=== PATIENT | female | born 1955 | race Caucasian/White ===

== ENCOUNTER 2017-03-26 19:06 | Emergency (ER) | payer OTHER ==
[2017-03-26 19:14] VITALS: RESP 16
--- NOTE | 2017-03-26 19:25 | EDPHY ---
H & P Stated Complaint: right wrist pain and swelling while hiking Time Seen by Provider: 03/26/17 19:25 - Personal History Current Tetanus/Diphtheria Vaccine: Yes Current Tetanus Diphtheria and Acellular Pertussis (TDAP): Yes Tetanus Vaccine Date: 2016 - Medical/Surgical History Hx Asthma: No Hx Chronic Respiratory Disease: No Hx Diabetes: No Hx Cardiac Disease: No Hx Renal Disease: No Hx Cirrhosis: No Hx Alcoholism: No Hx HIV/AIDS: No Hx Splenectomy or Spleen Trauma: No Other PMH: right total hip replacement. - Social History Smoking Status: Never smoked Constitutional: Initial Vital Signs Heart Rate 76 03/26/17 19:10 Respiratory Rate 16 03/26/17 19:10 Blood Pressure 130/69 H 03/26/17 19:10 O2 Sat (%) 93 03/26/17 19:10 O2 Delivery Mode Room Air O2 (L/minute) 15 Allergies/Adverse Reactions: Sulfa (Sulfonamide Antibiotics) Allergy (Verified 03/26/17 19:14) Home Medications: Medication Instructions Recorded NK [No Known Home Meds] 03/26/17 Medical Decision Making - Diagnostics Imaging Results: Imaging Impressions Wrist X-Ray 03/26/17 19:16 Impression: Acute distal radial and ulnar fractures. ED Course/Re-evaluation: CHIEF COMPLAINT: Right wrist pain. HISTORY OF PRESENT ILLNESS: The patient is a 61-year-old female who presents with right wrist pain secondary to falling while hiking earlier today. She denies numbness, weakness, or other complaints. She is able to move all of the fingers of her hand. Her other extremities are atraumatic. She did not hit her head. REVIEW OF SYSTEMS: A 10 point review of systems was performed and is negative with the exception of the elements mentioned in the history of present illness. PHYSICAL EXAM: HR, BP, O2 Sat, RR. Temp noted General Appearance: Alert, well hydrated, appropriate, and non-toxic appearing. Head: Atraumatic without scalp tenderness or obvious injury Eyes: Pupils equal, round, reactive to light and accommodation, EOMI, no trauma , no injection. Ears: Clear bilaterally, no perforation, normal landmarks Nose: Atraumatic, no rhinorrhea, clear. Throat: There is no erythema or exudates, no lesions, normal tonsils, mucus membranes moist. Neck: Supple, 2+ carotid upstroke, nontender, no lymphadenopathy. Respiratory: No retractions, no distress, no wheezes, and no accessory muscle use. Lungs are clear to auscultation bilaterally. Cardiovascular: Regular rate and rhythm, no murmurs, rubs, or gallops. Bilateral carotid, radial, dorsalis pedis, and posterior tibial pulses intact. Good capillary refill all extremities. Gastrointestinal: Abdomen is soft, nontender, non-distended, no masses, no rebound, no guarding, no peritoneal signs. Musculoskeletal: Deformity to right wrist with tenderness. Pain with range of motion. Neurological: Alert, appropriate, and interactive. The patient has normal DTRs and non-focal cranial nerves, motor, sensory, and cerebellar exam. Skin: No rashes, good turgor, no nodules on palpation. Past medical history: Denies. Past surgical history: Right total hip replacement, Family history: Non-contributory. Social history: Here with family. DIAGNOSTICS/PROCEDURES/CRITICAL CARE TIME: Study: Right Wrist X-ray Indication: Trauma, pain Results: I viewed the images myself on the PACS system. My interpretation of the images is: slightly angulated radius fracture. Ulnar styloid fracture. The radiologist interpretation is pending at the time of this dictation. Procedure: Conscious sedation. Indication: Right wrist fracture. The patient is an appropriate candidate to tolerate procedural sedation. The patient's vitals signs and mental status are appropriate. The risks, benefits and alternatives of the sedation were discussed with the patient. The did meet the 3-3-2 airway measurements. A time out was completed. The patient was sedated with 20mg IV Ketamine and IV Propofol. The patient was monitored with continuous pulse oximetry, secured entrance monitor and end tidal CO2. There were no complications and no significant hypoxemia. I performed both the sedation and the procedure. The total time I spent at the bedside during the procedural sedation was 10 minutes. The patient was examined after the procedural sedation and has returned to their pre-sedation baseline with normal vital signs and a normal examination. Procedure: Reduction of Angulated right radius fracture Time-out completed immediately before the procedure. IV established. O2 administered. Placed on pulse oximeter and ETCO2 monitor. Neurovascular exam intact pre-procedure. Given 20mg IV Ketamine for pain and sedation and IV Propofol for sedation. The right radius was reduced using traction. Reassessed post-procedure. Neurovascular status intact-Normal Motor and sensory exam. Confirmed reduction on X-ray. Splint applied by tech. The procedure was performed by myself. Study: Post Reduction right wrist X-ray Indication: Post-reduction Results: I viewed the images myself on the PACS system. My interpretation of the images is: better alignment of previously seen fracture. The radiologist interpretation is pending at the time of this dictation. DIFFERENTIAL DIAGNOSIS: The differential diagnosis includes, but is not limited to: sprain, strain, fracture. MEDICAL DECISION MAKIN-year-old female presents with right wrist pain and deformity after a hiking fall. She has pain with range of motion. On x-ray she has an angulated right radius fracture and ulnar styloid fracture. I discussed the risks and benefits of wrist reduction with sedation. She is agreeable to the procedure (see procedure note for details). I reviewed the post-reduction x-rays on the PACS system. They show a good reduction with better alignment. I discussed these results with her. She will be sent home with a sling and understands to follow up with orthopedics. I offered pain medications but she declined. Departure - Departure Disposition: Home, Routine, Self-Care Clinical Impression: Right wrist fracture Qualifiers: Encounter type: initial encounter Fracture type: closed Qualified Code(s): S62.101A - Fracture of unspecified carpal bone, right wrist, initial encounter for closed fracture Condition: Good Instructions: Wrist Fracture in Adults (ED) Additional Instructions: Follow up with an orthopedic surgeon when you return to [place]. If you need an orthopedic surgeon in [place] you have been given the telephone number of Dr. Villalobos, orthopedics. Wear the splint until you have followed up with orthopedics. Be sure to do daily shoulder rotation exercises. Return for any serious worsening of condition. Referrals: MERRICK SANTOYO [Other] - As per Instructions Report Scribed for: Milton Fox Report Scribed by: Ramu Amador Date of Report: 03/26/17 Time of Report: 20:11
[2017-03-26] MEDS ORDERED: KETAMINE 100 MG/10 ML SYR ONE (19:55)
[2017-03-26] MEDS ORDERED: PROPOFOL 200 MG/20 ML VIAL ONE (19:55)
[2017-03-26] MEDS ORDERED: KETAMINE 100 MG/10 ML SYR IVP ONE (19:56)
[2017-03-26] MEDS ORDERED: PROPOFOL 200 MG/20 ML VIAL IVP ONE (19:57)
[2017-03-26] MEDS ORDERED: PROPOFOL/EMULSION 500 MG/50 ML BOTTLE IV ONE (20:09)
[2017-03-26 21:09] VITALS: BP 115/66; PULSE 71; TEMP 97.9; O2SAT 96
== END 2017-03-26 21:09 | disposition home or self-care (01) ==
PROC: 0PSHXZZ Reposition Right Radius, External Approach (ICD-10-PCS; principal; 2017-03-26)
DX: S52.501A Unspecified fracture of the lower end of right radius, initial encounter for closed fracture (principal); W18.39XA Other fall on same level, initial encounter; Y99.8 Other external cause status; Y93.01 Activity, walking, marching and hiking
CPT/HCPCS: J2704